=== PATIENT | male | born 1990 | race Caucasian/White ===

== ENCOUNTER 2018-08-18 01:21 | Emergency (ER) | payer MEDICAID ==
[~2018-08-18] VITALS: Ht 205.7 cm; Wt 59.0 kg
[~2018-08-18 01:21] MED LIST: ALBU8.5H4 IH; FLUT12AE4 IH; LEVA15HF4; PRED20TA PO
[2018-08-18 02:37] VITALS: BP 147/87
== END 2018-08-18 03:14 | disposition home or self-care (01) ==
LOC: ER 01:22
DX: N50.89 Other specified disorders of the male genital organs (principal); N50.811 Right testicular pain; J45.909 Unspecified asthma, uncomplicated; F12.90 Cannabis use, unspecified, uncomplicated; F15.90 Other stimulant use, unspecified, uncomplicated; Z79.899 Other long term (current) drug therapy
CPT/HCPCS: 99281

== ENCOUNTER 2018-08-22 04:41 | Emergency (ER) | payer MEDICAID ==
[~2018-08-22] VITALS: Ht 208.3 cm; Wt 82.9 kg
[2018-08-22] MEDS ORDERED: normal saline 1000ML IV soln IVB ONE (05:05)
[2018-08-22] MEDS ORDERED: ondansetron/PF 4mg/2ml inj IV ONE (05:05)
[2018-08-22] MEDS ORDERED: iohexol 300mg/ml 100ml inj. ONE (05:18)
[2018-08-22] MEDS: morphine 4 MG/ML inj SYRINge IV ONE ×2 (05:23→05:26)
[2018-08-22 05:24] LABS: BASOPHILS # (AUTO) 0.1 X10'3 (0-0.2); BASOPHILS % (AUTO) 1.1 % (0-1); EOSINOPHILS # (AUTO) 0.6 X10'3 (0-0.9); HEMATOCRIT 39.9 % (42.0-52.0); HEMOGLOBIN 13.5 g/dl (14.0-17.9); LYMPHOCYTES # (AUTO) 1.9 X10'3 (1.1-4.8); MEAN CORPUSCULAR HEMOGLOBIN 30.3 PG (27.0-31.0); MEAN CORPUSCULAR HGB CONC 33.8 % (33.0-36.5); MEAN CORPUSCULAR VOLUME 89.8 FL (78-98); MEAN PLATELET VOLUME 8.5 FL (7.4-10.4); MONOCYTES # (AUTO) 0.7 X10'3 (0-0.9); MONOCYTES % (AUTO) 10.4 % (2-12); NEUTROPHILS # (AUTO) 3.8 X10'3 (1.8-7.7); NEUTROPHILS % (AUTO) 52.5 % (42-75); PLATELET COUNT 261 X10'3 (140-440); RED BLOOD COUNT 4.44 X10'6 (4.70-6.10); RED CELL DISTRIBUTION WIDTH 13.6 % (11.5-14.5); WHITE BLOOD COUNT 7.2 X10'3 (4.5-11.0)
[2018-08-22] MEDS ORDERED: ibuprofen tablet 400 MG TABLET PO ONE (05:30)
[2018-08-22 05:35] LABS: PARTIAL THROMBOPLASTIN TIME 30 SECONDS (22-32); PROTHROMBIN TIME 10.8 SECONDS (9.0-12.0)
[2018-08-22 05:40] LABS: ALANINE AMINOTRANSFERASE 31 U/L (12-78); ALBUMIN 3.6 G/DL (3.4-5.0); ALBUMIN/GLOBULIN RATIO 1.1 (1.1-1.5); ALKALINE PHOSPHATASE 86 IU/L (46-116); ANION GAP 10 (8-16); ASPARTATE AMINO TRANSFERASE 24 U/L (10-37); BILIRUBIN,TOTAL 0.3 MG/DL (0.1-1.0); BLOOD UREA NITROGEN 19 MG/DL (7-18); BUN/CREATININE RATIO 20.4 (5.4-32.0); CALCIUM 8.1 MG/DL (8.5-10.1); CHLORIDE 106 MMOL/L (99-107); CREATININE 0.93 MG/DL (0.60-1.10); GLUCOSE 96 MG/DL (70-104); LIPASE 179 U/L (73-393); POTASSIUM 3.8 MMOL/L (3.5-5.1); SODIUM 143 MMOL/L (135-145); TOTAL CARBON DIOXIDE 27.5 MMOL/L (24-32); eGFR > 90 ML/MIN
[2018-08-22 07:14] LABS: CLARITY,URINE CLEAR (Clear); COLOR,URINE YELLOW (Yellow); GLUCOSE, URINE NEGATIVE (Neg); KETONES,URINE NEGATIVE (Neg); LEUKOCYTE ESTERASE ,URINE NEGATIVE (Neg); NITRITES, URINE NEGATIVE (Neg); OCCULT BLOOD,URINE NEGATIVE (Neg); PH,URINE 5.5 (4.8-8.0); PROTEIN,URINE NEGATIVE (Neg); UROBILINOGEN,URINE 0.2 E.U/dL (0.2-1.0)
[2018-08-22 07:17] LABS: UA COLLECTION TYPE CLN CATCH MIDSTREAM
[2018-08-22 08:00] VITALS: BP 130/88
== END 2018-08-22 10:16 | disposition home or self-care (01) ==
LOC: ER 04:43
DX: N43.3 Hydrocele, unspecified (principal); N28.1 Cyst of kidney, acquired; J45.909 Unspecified asthma, uncomplicated; F12.90 Cannabis use, unspecified, uncomplicated; F15.90 Other stimulant use, unspecified, uncomplicated; Z79.899 Other long term (current) drug therapy
CPT/HCPCS: 36415; 71045; 74177; 76870; 80053; 81003; 83690; 85025; 85610; 85730; 93970; 93978; 96374; 99285; J2270; J2405; J7030; Q9967

== ENCOUNTER 2019-12-14 01:05 | Emergency (ER) | payer MEDICAID, OTHER ==
[~2019-12-14] VITALS: Ht 205.7 cm; Wt 84.0 kg
[2019-12-14 01:16] VITALS: BP 134/89
[2019-12-14 01:37] LABS: CLARITY,URINE SLIGHTLY CLOUDY (Clear); COLOR,URINE YELLOW (Yellow); GLUCOSE, URINE NEGATIVE (Neg); KETONES,URINE NEGATIVE (Neg); LEUKOCYTE ESTERASE ,URINE NEGATIVE (Neg); NITRITES, URINE NEGATIVE (Neg); OCCULT BLOOD,URINE NEGATIVE (Neg); PROTEIN,URINE >=300 mg/dl (Neg); UROBILINOGEN,URINE 0.2 E.U/dL (0.2-1.0)
[2019-12-14 01:43] LABS: UA COLLECTION TYPE CLN CATCH MIDSTREAM
[2019-12-14 01:45] LABS: RBC,URINE 0-2 /HPF (0-2)
[2019-12-14 01:46] LABS: MUCUS STRANDS MANY /LPF (Neg); SQUAMOUS EPITHELIAL CELL,UR FEW /LPF (FEW); TRANSITIONAL EPI CELLS,URINE FEW /HPF
--- NOTE | 2019-12-14 01:46 | NUR ---
u/s tech in room at this time, rpd officer outside the room.
[2019-12-14 01:47] LABS: RENAL CELLS, URINE FEW /HPF
[2019-12-14 01:48] LABS: CELLULAR CAST 0-4 /LPF (NEGATIVE)
[2019-12-14 01:49] LABS: FINE GRANULAR CAST 0-3 /LPF (NEGATIVE)
[2019-12-14 01:52] LABS: AMORPHOUS URATES 2+; BACTERIA,URINE 2+ /HPF (Neg)
== END 2019-12-14 02:30 ==
LOC: ER 01:05
DX: N43.3 Hydrocele, unspecified (principal); J45.909 Unspecified asthma, uncomplicated; F12.90 Cannabis use, unspecified, uncomplicated; F15.90 Other stimulant use, unspecified, uncomplicated; Z79.899 Other long term (current) drug therapy
CPT/HCPCS: 36415; 76870; 81001; 87088; 87491; 99284

== ENCOUNTER 2020-03-05 16:29 | Emergency (ER) | payer OTHER ==
[~2020-03-05] VITALS: Ht 205.7 cm; Wt 100.0 kg
[2020-03-05 18:38] LABS: CLARITY,URINE CLEAR (Clear); COLOR,URINE YELLOW (Yellow); GLUCOSE, URINE NEGATIVE (Neg); KETONES,URINE NEGATIVE (Neg); LEUKOCYTE ESTERASE ,URINE NEGATIVE (Neg); NITRITES, URINE NEGATIVE (Neg); OCCULT BLOOD,URINE NEGATIVE (Neg); PROTEIN,URINE NEGATIVE (Neg); UROBILINOGEN,URINE 0.2 E.U/dL (0.2-1.0)
[2020-03-05 18:39] LABS: UA COLLECTION TYPE VOIDED
[2020-03-05] MEDS ORDERED: ACET-1015 PO (19:05)
[2020-03-05 19:14] VITALS: BP 128/78
== END 2020-03-05 19:12 ==
LOC: ER 16:29
DX: N43.3 Hydrocele, unspecified (principal); J45.909 Unspecified asthma, uncomplicated; F12.90 Cannabis use, unspecified, uncomplicated; F15.90 Other stimulant use, unspecified, uncomplicated; Z98.890 Other specified postprocedural states
CPT/HCPCS: 36415; 76775; 76870; 81003; 87491; 99285

== ENCOUNTER 2020-06-08 02:25 | Emergency (ER) | payer MEDICAID, OTHER ==
[~2020-06-08] VITALS: Ht 205.7 cm; Wt 109.1 kg
[2020-06-08] MEDS ORDERED: normal saline 1000ml 1,000 ML IV ONE (03:20)
[2020-06-08] MEDS ORDERED: clindamycin phosphate inj 600 MG in normal saline 50ml IV soln 50 ML IV ONE (03:20)
[2020-06-08] MEDS ORDERED: ketorolac trometh. 30mg/ml inj. IV ONE (03:20)
[2020-06-08] MEDS ORDERED: clindamycin 600mg/D5W 50ml 50 ML IV ONE (03:30)
[2020-06-08 04:00] LABS: BASOPHILS # (AUTO) 0.1 X10'3 (0-0.2); BASOPHILS % (AUTO) 0.8 % (0-1); EOSINOPHILS # (AUTO) 0.3 X10'3 (0-0.9); EOSINOPHILS % (AUTO) 3.5 % (0-6); HEMATOCRIT 38.2 % (42.0-52.0); HEMOGLOBIN 12.8 g/dl (14.0-17.9); LYMPHOCYTES # (AUTO) 1.7 X10'3 (1.1-4.8); LYMPHOCYTES % (AUTO) 16.6 % (21-51); MEAN CORPUSCULAR HEMOGLOBIN 30.6 PG (27.0-31.0); MEAN CORPUSCULAR HGB CONC 33.4 g/dL (33.0-36.5); MEAN CORPUSCULAR VOLUME 91.7 FL (78-98); MEAN PLATELET VOLUME 9.5 FL (7.4-10.4); MONOCYTES # (AUTO) 1.3 X10'3 (0-0.9); MONOCYTES % (AUTO) 12.8 % (2-12); NEUTROPHILS # (AUTO) 6.6 X10'3 (1.8-7.7); NEUTROPHILS % (AUTO) 66.3 % (42-75); PLATELET COUNT 307 X10'3 (140-440); RED BLOOD COUNT 4.16 X10'6 (4.70-6.10); RED CELL DISTRIBUTION WIDTH 12.7 % (11.5-14.5)
--- NOTE | 2020-06-08 04:02 | NUR ---
labs drawn, bcx x 1st set drawn, pt is cooperative. small ulcer to right testicle with no current drainage
[2020-06-08 04:09] LABS: CLARITY,URINE CLEAR (Clear); COLOR,URINE YELLOW (Yellow); GLUCOSE, URINE NEGATIVE (Neg); KETONES,URINE 15 mg/dl (Neg); LEUKOCYTE ESTERASE ,URINE NEGATIVE (Neg); NITRITES, URINE NEGATIVE (Neg); OCCULT BLOOD,URINE NEGATIVE (Neg); PH,URINE 5.5 (4.8-8.0); PROTEIN,URINE 100 mg/dl (Neg)
[2020-06-08 04:11] LABS: PARTIAL THROMBOPLASTIN TIME 36 SECONDS (22-32)
[2020-06-08 04:15] LABS: UA COLLECTION TYPE URINAL
[2020-06-08 04:16] LABS: ALANINE AMINOTRANSFERASE 23 U/L (12-78); ALBUMIN 3.2 G/DL (3.4-5.0); ALBUMIN/GLOBULIN RATIO 0.7 (1.1-1.5); ALKALINE PHOSPHATASE 76 IU/L (46-116); ANION GAP 9 (8-16); ASPARTATE AMINO TRANSFERASE 23 U/L (10-37); BILIRUBIN,TOTAL 0.4 MG/DL (0.1-1.0); BLOOD UREA NITROGEN 17 MG/DL (7-18); CHLORIDE 103 MMOL/L (99-107); CREATININE 1.54 MG/DL (0.60-1.10); GLUCOSE 93 MG/DL (70-104); MAGNESIUM 1.6 MG/DL (1.5-2.4); POTASSIUM 3.2 MMOL/L (3.5-5.1); SODIUM 139 MMOL/L (135-145); TOTAL CARBON DIOXIDE 26.9 MMOL/L (24-32); TOTAL PROTEIN 7.5 G/DL (6.4-8.2); eGFR 54 ML/MIN
[2020-06-08 04:23] LABS: BACTERIA,URINE 1+ /HPF (Neg); RBC,URINE NONE SEEN /HPF (0-2); SQUAMOUS EPITHELIAL CELL,UR FEW /LPF (FEW); WBC,URINE 0-4 /HPF (0-4)
[2020-06-08 04:27] LABS: URINE AMPHETAMINE SCREEN POSITIVE (Neg); URINE BARBITUATE SCREEN NEGATIVE (Neg); URINE BENZODIAZEPINES SCREEN NEGATIVE (Neg); URINE CANNABINOID SCREEN NEGATIVE (Neg); URINE COCAINE SCREEN NEGATIVE (Neg); URINE METHADONE SCREEN NEGATIVE (Neg); URINE OPIATE SCREEN NEGATIVE (Neg); URINE PHENCYCLIDINE SCREEN NEGATIVE (Neg)
[2020-06-08 05:59] VITALS: BP 134/63
[2020-06-08] MEDS ORDERED: CLIN150C8 PO (06:07)
== END 2020-06-08 06:22 | disposition home or self-care (01) ==
LOC: ER 02:26
DX: N49.2 Inflammatory disorders of scrotum (principal); R10.9 Unspecified abdominal pain; J45.909 Unspecified asthma, uncomplicated; F12.90 Cannabis use, unspecified, uncomplicated; F15.90 Other stimulant use, unspecified, uncomplicated; Z79.2 Long term (current) use of antibiotics; Z79.899 Other long term (current) drug therapy
CPT/HCPCS: 36415; 76870; 80053; 80305; 81001; 83605; 83735; 84145; 85025; 85610; 85730; 87040; 93005; 96365; 96375; 99285; J1885; J7030; J3490